=== PATIENT | male | born 1970 | race Caucasian/White ===

== ENCOUNTER 2018-03-20 10:00 | Emergency (ER) | payer SELFPAY ==
[~2018-03-20] VITALS: Ht 180.3 cm; Wt 92.0 kg
[2018-03-20 10:06] VITALS: BP 183/85; PULSE 87; RESP 17; TEMP 98.3; O2SAT 99
[2018-03-20 10:17] LABS: BLOOD, URINE LARGE (NEG); GLUCOSE,URINE NEG (NEG); KETONE, URINE NEG (NEG); NITRITE,URINE NEG (NEG); URINE COLOR YELLOW (YELLW/STRAW); URINE LEUKOCYTE ESTERASE NEG (NEG)
[2018-03-20 10:20] LABS: BILIRUBIN, URINE NEG (NEG)
[2018-03-20] MEDS ORDERED: SODIUM CHLOR 0.9% 1000 ML INJ 1,000 ML IV ONE (10:30)
[2018-03-20] MEDS ORDERED: SODIUM CHLORIDE 0.9% FLUSH 10 ML FLUSH IVF PRN (10:30)
[2018-03-20] MEDS ORDERED: KETOROLAC TROMETHAMINE 30 MG/ML (IVP) VIAL IVP ONE (10:30)
[2018-03-20] MEDS ORDERED: MORPHINE SULFATE 4 MG/ML INJ IV ONE (10:30)
[2018-03-20] MEDS ORDERED: diphenhydrAMINE HCL 50 MG/ML VIAL IV PUSH ONE (10:30)
[2018-03-20] MEDS ORDERED: PROCHLORPERAZINE INJ 10 MG/2 ML VIAL IV PUSH ONE (10:30)
[2018-03-20 10:31] LABS: AMORPHOUS SEDIMENT, URINE FEW; SQUAMOUS EPITHELIAL CELL URINE 0-5 /hpf (0-5); WBC, URINE 0-2 /hpf (0-5)
--- NOTE | 2018-03-20 11:10 | RADRPT ---
EXAM DATE/TIME: 03/20/2018 10:51 [place] COMPARISON: No previous studies available for comparison. INDICATIONS : Right flank pain. ORAL CONTRAST: No oral contrast ingested. RADIATION DOSE: 11.63 CTDIvol (mGy) MEDICAL HISTORY : None SURGICAL HISTORY : None. ENCOUNTER: Initial ACUITY: 4 - 6 days PAIN SCALE: 4/10 LOCATION: Right flank TECHNIQUE: Volumetric scanning of the abdomen and pelvis was performed. Using automated exposure control and ad justment of the mA and/or kV according to patient size, radiation dose was kept as low as reasonably achievable to obtain optimal diagnostic quality images. DICOM format image data is available electro nically for review and comparison. FINDINGS: LOWER LUNGS: The visualized lower lungs are clear. LIVER: Homogeneous density without lesion. There is no dilation of the biliary tree. No calcified gallston es. SPLEEN: Normal size without lesion. PANCREAS: Within normal limits. KIDNEYS: Normal in size and shape. A prominent 1 cm stone is identified in the collecting system of the asympt omatic, left kidney. No stones on the right. No hydronephrosis. ADRENAL GLANDS: Within normal limits. VASCULAR: There is no aortic aneurysm. BOWEL/MESENTERY: The stomach, small bowel, and colon demonstrate no acute abnormality. There is no free intraperitone al air or fluid. The appendix is identified and is radiographically normal. ABDOMINAL WALL: Within normal limits. RETROPERITONEUM: There is no lymphadenopathy. BLADDER: No wall thickening or mass. REPRODUCTIVE: Within normal limits. INGUINAL: There is no lymphadenopathy or hernia. MUSCULOSKELETAL: Within normal limits for patient age. CONCLUSION: 1. 1 cm stone in the renal pelvis of the asymptomatic left kidney without obstruction. 2. No stones on the right. No hydronephrosis. The appendix is normal. Lenard Vernon MD on March 20, 2018 at 11:05 Board Certified Radiologist. This report was verified electronically.
[2018-03-20] MEDS ORDERED: PROM25TA10 PO (11:13)
[2018-03-20] MEDS ORDERED: PERC5TAB12 PO (11:13)
[2018-03-20] MEDS ORDERED: TAMS5CAP PO (11:13)
--- NOTE | 2018-03-20 11:13 | PD ---
HPI . Flank pain Chief Complaint: Flank/Kidney Pain Time Seen by Provider: 10:27 Travel History International Travel<30 days: No Contact w/Intl Traveler<30days: No Traveled to known affect area: No History of Present Illness HPI Patient presents with chief complaint of right flank pain. Onset was about 6 days ago. The pain was very mild for the first few days. It became worse 4 days ago. He states that he has had steady pain for the last 4 days which has waxed and waned in intensity. He describes it as a knife stabbing him in the back. He rates the pain at 7/10. It is mildly relieved by Aleve. It is now associated with hematuria which started last night. PFSH Past Medical History Medical History: Denies Significant Hx Diminished Hearing: No Tetanus Vaccination: Unknown Influenza Vaccination: No Past Surgical History Surgical History: No Previous Surgery Social History Alcohol Use: No Tobacco Use: Yes Substance Use: No Allergies-Medications (Allergen,Severity, Reaction): Coded Allergies: No Known Allergies (Unverified , 03/20/18) Reported Meds & Prescriptions Reported Meds & Active Scripts Active Flomax (Tamsulosin HCl) 0.4 Mg Cap 0.4 Mg PO HS Phenergan (Promethazine HCl) 25 Mg Tablet 25 Mg PO Q6H PRN Percocet (Oxycodone-Acetaminophen) 5-325 mg Tab 1 Tab PO Q4H PRN Review of Systems Except as stated in HPI: all other systems reviewed are Neg Genitourinary: Positive: Hematuria, Flank Pain Physical Exam Narrative GENERAL: Awake and alert and in no acute distress. SKIN: warm/dry. HEAD: Normocephalic. Atraumatic. EYES: Pupils equal and round. No scleral icterus. No injection or drainage. ENT: No nasal bleeding or discharge. Mucous membranes pink and moist. NECK: Trachea midline. Full range of motion without pain.. CARDIOVASCULAR: Regular rate and rhythm. RESPIRATORY: No accessory muscle use. Clear to auscultation. Breath sounds equal bilaterally. GASTROINTESTINAL: Abdomen soft. Nontender. Bowel sounds present. Nondistended. No CVA tenderness. MUSCULOSKELETAL: No obvious deformities. NEUROLOGICAL: Awake and alert. No obvious cranial nerve deficits. Motor grossly within normal limits. Normal speech. PSYCHIATRIC: Appropriate mood and affect; insight and judgment normal. Data Data Last Documented VS Vital Signs Date Time Temp Pulse Resp B/P (MAP) Pulse Ox O2 Delivery O2 Flow Rate FiO2 03/20/18 10:06 98.3 87 17 183/85 (117) 99 Orders Orders Urinalysis - C+S If Indicated (03/20/18 10:08) Ct Abd/Pel W/O Iv Contrast (03/20/18 10:28) Iv Access Insert/Monitor (03/20/18 10:28) Ketorolac Inj (Toradol Inj) (03/20/18 10:30) Sodium Chloride 0.9% Flush (Ns Flush) (03/20/18 10:30) Diphenhydramine Inj (Benadryl Inj) (03/20/18 10:30) Prochlorperazine Inj (Compazine Inj) (03/20/18 10:30) Morphine Inj (Morphine Inj) (03/20/18 10:30) Sodium Chlor 0.9% 1000 Ml Inj (Ns 1000 M (03/20/18 10:30) Labs Laboratory Tests Test 03/20/18 10:10 Urine Collection Type CLEAN CATCH Urine Color YELLOW Urine Turbidity SL CLOUDY Urine pH 5.0 Urine Specific [place] GREATER/EQUAL 1.030 Urine Protein 30 mg/dL Urine Glucose (UA) NEG mg/dL Urine Ketones NEG mg/dL Urine Occult Blood LARGE Urine Nitrite NEG Urine Bilirubin NEG Urine Urobilinogen 0.2 MG/DL Urine Leukocyte Esterase NEG Urine WBC 0-2 /hpf Urine Squamous Epithelial Cells 0-5 /hpf Urine Amorphous Sediment FEW Microscopic Urinalysis Comment CULT NOT INDICATED Urine Collection Time 1010 MDM Medical Decision Making Medical Screen Exam Complete: Yes Emergency Medical Condition: Yes Differential Diagnosis Differential diagnosis of flank pain includes but is not limited to kidney stone , pyelonephritis, musculoskeletal pain, PE Narrative Course Patient presents with a chief complaint of right flank pain. His symptoms sound like kidney colic. UA has large blood. E force was queried and he has had no controlled substances filled. CT shows a 1 cm stone in the left renal pelvis. No stones on the right. The appendix is normal. So, he has painful hematuria with no evidence of kidney stone. I will refer him to urology for further evaluation. It is possible that he had a small right ureteral stone which has already passed and which did not cause any hydronephrosis. However, I would like for him to be evaluated by urology. Diagnosis Primary Impression: Flank pain Additional Impression: Hematuria Qualified Codes: R31.9 - Hematuria, unspecified Referrals: Tutu Mcgarry MD Patient Instructions: General Instructions, Kidney Stones (DC) Med/Other Pt SpecificInfo: Prescription(s) given Scripts Tamsulosin (Flomax) 0.4 Mg Cap 0.4 MG PO HS for Manage Prostate Problems, #30 CAP 0 Refills Prov: Maribel Rogers MD 03/20/18 Promethazine (Phenergan) 25 Mg Tablet 25 MG PO Q6H Y for NAUSEA OR VOMITING, #12 TAB 0 Refills Prov: Maribel Rogers MD 03/20/18 Oxycodone-Acetaminophen (Percocet) 5-325 mg Tab 1 TAB PO Q4H Y for PAIN, #12 TAB 0 Refills Prov: Maribel Rogers MD 03/20/18 Disposition: 01 DISCHARGE HOME Condition: Stable Maribel Rogers MD March 20, 2018 11:13
== END 2018-03-20 11:28 | disposition home or self-care (01) ==
LOC: PHED 10:00
DX: R10.9 Unspecified abdominal pain (principal); R31.9 Hematuria, unspecified; Z72.0 Tobacco use
CPT/HCPCS: 74176; 81001; 96361; 96374; 96375; 99284; J0780; J1200; J1885; J2270; J7030